=== PATIENT | female | born 1985 | race Caucasian/White ===

== ENCOUNTER → 2020-04-08 | Outpatient (CLI) | payer OTHER ==
[~2020-04-08] MED LIST: MOTRIN 800800 MG/TAB PO; PERCOCET 325 MG1 TA2 PO; PNV-TOTAL1 SGL PO
== END ==
LOC: MC.RAD 14:00
DX: N63.20 Unspecified lump in the left breast, unspecified quadrant (principal)

== ENCOUNTER → 2020-04-16 | Outpatient (CLI) | payer OTHER | LOC: MC.RAD 07:03 | DX: R59.0 Localized enlarged lymph nodes (principal) ==